=== PATIENT | male | born 1960 | race Caucasian/White ===

== ENCOUNTER → 2018-02-17 | Outpatient (CLI) | payer OTHER | LOC: M.CRD 02-10 09:55 → M.CT 11:00 | DX: I71.2 Thoracic aortic aneurysm, without rupture (principal); I25.10 Atherosclerotic heart disease of native coronary artery without angina pectoris; I35.8 Other nonrheumatic aortic valve disorders; J84.10 Pulmonary fibrosis, unspecified ==

== ENCOUNTER → 2018-08-18 | Outpatient (CLI) | payer OTHER | LOC: M.CT 07:25 | DX: I77.810 Thoracic aortic ectasia (principal); I25.10 Atherosclerotic heart disease of native coronary artery without angina pectoris; K76.0 Fatty (change of) liver, not elsewhere classified; J98.11 Atelectasis; D71 Functional disorders of polymorphonuclear neutrophils ==